=== PATIENT | female | born 1950 | race Caucasian/White ===

== ENCOUNTER 2023-08-23 06:16 | Outpatient (RCR) | payer MEDICARE, SELFPAY | END 2023-08-23 23:59 | disposition home or self-care (01) | LOC: RPT 06:16 | PROVIDERS: ATTENDING PHYSICIAN Family Medicine | DX: I89.0 Lymphedema, not elsewhere classified (principal); Z73.6 Limitation of activities due to disability; M25.552 Pain in left hip; R26.89 Other abnormalities of gait and mobility; Z96.652 Presence of left artificial knee joint | CPT/HCPCS: 97110; 97140; 97163; 97530 ==

== ENCOUNTER → 2023-09-12 12:57 | Outpatient (REF) | payer MEDICARE, SELFPAY | LOC: WDC 12:57 | PROVIDERS: ATTENDING PHYSICIAN Family Medicine | DX: Z12.31 Encounter for screening mammogram for malignant neoplasm of breast (principal) | CPT/HCPCS: 77063; 77067 ==

== ENCOUNTER 2023-09-20 08:49 | Outpatient (RCR) | payer MEDICARE, SELFPAY | END 2023-09-20 23:59 | disposition home or self-care (01) | LOC: RPT 08:49 | PROVIDERS: ATTENDING PHYSICIAN Family Medicine | DX: I89.0 Lymphedema, not elsewhere classified (principal); Z73.6 Limitation of activities due to disability; M25.562 Pain in left knee; M25.561 Pain in right knee | CPT/HCPCS: 97110; 97140; 97530 ==

== ENCOUNTER 2023-10-20 09:02 | Outpatient (RCR) | payer MEDICARE, SELFPAY | END 2023-10-20 23:59 | disposition home or self-care (01) | LOC: RPT 09:02 | PROVIDERS: ATTENDING PHYSICIAN Family Medicine | DX: I89.0 Lymphedema, not elsewhere classified (principal); Z73.6 Limitation of activities due to disability; M25.562 Pain in left knee; M25.561 Pain in right knee | CPT/HCPCS: 97110; 97140; 97530 ==

== ENCOUNTER 2023-10-26 13:52 | Outpatient (RCR) | payer MEDICARE, SELFPAY | END 2023-10-26 23:59 | disposition home or self-care (01) | LOC: RPT 13:52 | PROVIDERS: ATTENDING PHYSICIAN Family Medicine | DX: I89.0 Lymphedema, not elsewhere classified (principal); Z73.6 Limitation of activities due to disability | CPT/HCPCS: 97110; 97140 ==

== ENCOUNTER → 2023-11-23 15:45 | Outpatient (RCR) | payer MEDICARE, SELFPAY | END | disposition home or self-care (01) | LOC: RPT 15:45 | PROVIDERS: ATTENDING PHYSICIAN Family Medicine | DX: I89.0 Lymphedema, not elsewhere classified (principal); Z73.6 Limitation of activities due to disability | CPT/HCPCS: 97163; 97530 ==

== ENCOUNTER 2023-12-25 08:30 | Inpatient (IN) | payer MEDICARE, SELFPAY ==
--- NOTE | 2023-11-23 11:50 | CM ---
Patient is scheduled for an elective R TKR on 12/25/23. Spoke with patient prior to surgery via telephone. Introduced role of Orthopedic Navigator. Patient reports that she lives alone in a one story home. There are no steps to enter. She currently
functions independently. She has a cane, rolling walker, raised toilet seat and grab bars in her shower. She has never had VN services. PCP is Dr. Fidencio Burton.
Discussed orthopedic program and post surgical plans. Reviewed anticipated length of stay and that goal is for her to return home at discharge. Also reviewed outpatient PT. Patient is in agreement with tentative plan and will go directly to
outpatient PT at [facility]. She will have support from her neighbor when she goes home. She was encouraged to arrange for someone to stay with her at least the first night home.
Patient will complete online education.
Plan: Orthopedic Navigator will remain available to assist with the care of patient and will reassess discharge needs after surgery.
[2023-12-06 12:54] VITALS: BMI 39.9
[2023-12-06 13:53] LABS: Hematocrit 40.5 % (37.0-47.0); Hemoglobin 13.5 g/dL (12.0-16.0); Mean Corp Hgb Conc. 33.3 g/dL (33.0-37.0); Mean Corpuscular Hgb 29.7 pg (27.0-31.0); Mean Corpuscular Volume 89.2 fL (81.0-99.0); Mean Platelet Volume 11.2 fL (7.4-10.4); Platelet Count 229 10^3/uL (130-400); Red Blood Cell Count 4.54 10^6/uL (4.20-5.40); Red Cell Dist. Width 14.3 % (11.5-14.5); White Blood Cell Count 8.1 10^3/uL (4.8-10.8)
[2023-12-06 14:23] LABS: ALT (SGPT) 19 U/L (0-35); AST (SGOT) 27 U/L (14-36); Alkaline Phosphatase 95 U/L (38-126); Blood Urea Nitrogen 23 mg/dl (7-17); Calcium 9.7 mg/dl (8.4-10.2); Carbon Dioxide 27 mmol/L (22-30); Chloride 105 mmol/L (98-107); Estimated Creatinine Clearance 75 ml/min; Glucose 88 mg/dl (70-99); Potassium 4.3 mmol/L (3.5-5.1); Sodium 141 mmol/L (135-145); Total Bilirubin 0.6 mg/dl (0.2-1.3); Total Protein 6.8 g/dl (6.3-8.2); eGFR > 60.00
[2023-12-06 14:34] LABS: Glycohemoglobin (HgbA1c) 6.1 % (4.0-5.6)
[2023-12-06 14:49] VITALS: BMI 39.9
[2023-12-25] VITALS (23 sets, daily range): BP systolic 128–168; BP diastolic 52–102; PULSE 57; O2SAT 94; BMI 39.9
[2023-12-25] MEDS: TYLENOL 650 MG PO ×3 (09:38→20:40)
[2023-12-25] MEDS: CELEBREX 200 MG PO (09:39)
[2023-12-25] MEDS: NORMOSOL-R 1000 IV ×2 (09:40→17:16)
--- NOTE | 2023-12-25 20:10 | SUR.PHASEI ---
Bedside Report given to Alicia Humphrey RN.
[2023-12-25] MEDS: ANCEF 5 IV (20:28)
[2023-12-25] MEDS: SENOKOT 17.1999999999999993 MG PO (21:09)
--- NOTE | 2023-12-25 21:45 | PTCARENOTE ---
Addendum entered by Liliana Martinez RN 12/26/23 00:24:
reviewed post op wound care, ambulation, and precautions.
Original Note:
pt arrive to floor at 2130. pt is aaox3, pt reports pain 5/10, weak pp. pt is given prn ultram 50mg w/ +eff. Aquacel to right knee is c/d/i. ice packs applied. pt is oriented to room w/ call logan in reach.
[2023-12-25] MEDS: PEPCID 20 MG PO (22:00)
[2023-12-25] MEDS: ULTRAM 50 MG PO (22:00)
[2023-12-25] MEDS: XARELTO 10 MG PO (22:00)
[2023-12-25] MEDS: TENORMIN 25 MG PO (22:00)
[2023-12-25] MEDS: LIPITOR 10 MG PO (22:01)
[2023-12-25] MEDS: COLACE 100 MG PO (22:01)
[2023-12-25] MEDS: BACTROBAN 2% OINTMENT 1 APPLIC NASAL (22:50)
[2023-12-26] MEDS: TYLENOL PO ×2 (00:25→11:14)
[2023-12-26 03:12] VITALS: BP 154/75
[2023-12-26] MEDS: TYLENOL 650 MG PO ×2 (04:41→10:20)
[2023-12-26] MEDS: FLUSH (NSS) 1 FLUSH IV (04:41)
[2023-12-26] MEDS: ANCEF 5 IV (04:54)
[2023-12-26] MEDS: ULTRAM 50 MG PO (05:05)
[2023-12-26 07:00] VITALS: BP 149/69
--- NOTE | 2023-12-26 09:31 | CM ---
Reviewed chart and held rounds with PT, OT and nursing. Patient admitted as planned for elective R TKR. Met with patient at bedside. Confirmed information previously obtained for assessment. Also discussed discharge plans. The plan is for patient to
return home at discharge. She will have support from her sister when she goes home. Patient will go directly to outpatient PT and will go to [facility]. She has an appointment scheduled for 12/27/23. Reviewed need to schedule appointment
with PA at Dr. Purcell office in two weeks for removal of morgan.
Patient has a rolling walker, cane, grab bars in shower, and commode. She plans to have commode by bedside initially.
She will use [facility] pharmacy in [place] for discharge prescriptions.
[2023-12-26 09:56] VITALS: BP 149/69
[2023-12-26] MEDS: BACTROBAN 2% OINTMENT 1 APPLIC NASAL (10:19)
[2023-12-26] MEDS: SENOKOT 17.1999999999999993 MG PO (10:19)
[2023-12-26] MEDS: COLACE 100 MG PO (10:20)
--- NOTE | 2023-12-26 10:39 | W.PN.ORTHO ---
Today's Communication / Plan
-
d/c
Assessment
.
Distal Motor Intact: Yes
Dressing:
Clean, dry and intact.
Assessment:
PAF-stable on tele-Xarelto
Morbid obesity BMI 39.9--Cefadroxil ppx
Plan
.
Surgery / Date: R TKA 12/25/23 CBB
DVT Prophylaxis: Other (Xarelto)
Activity:
Out of bed.
PT/OT
Discharge Plan: Home w/ Outpatient PT
Subjective
.
.:
Patient resting comfortably.
Vital Signs and Labs
.
Vital Signs and Labs:
Lab Results
12/06/23 12:50
12/06/23 12:50
Temp Pulse Resp BP Pulse Ox
97.7 F 57 18 149/69 97
12/26/23 07:00 12/26/23 07:00 12/26/23 07:00 12/26/23 07:00 12/26/23 07:00
Non-invasive Hgb result: 11.3
Physical Exam
-
HEENT: No pallor, cyanosis, or jaundice. Throat clear.
NECK: Supple. No JVD.
RESPIRATORY: Lungs clear to auscultation.
CVS: S1, S2 normal. RRR.� No murmur, rub or gallop.
ABDOMEN: Soft, non-tender. No distension. BS+/normal.
EXTREMITIES: strength equal, no calf pain with palpation
HOME CARE PHYSICAL THERAPIST: AOx3. No focal deficits. toolmaker helper grossly intact
--- NOTE | 2023-12-26 10:49 | W.DS.TRANS ---
DC Summary - Welding Manager
-
Discharge Instructions:
Sleep Apnea Risk Intermediate
Discharge Diagnosis/Procedures R TKA 12/25/23 CBB
Diet As tolerated
Activity With Walker
Driving Restrictions No driving
Bathing Restrictions OK to Shower
Other Services PT
Instructions:
Stand-Alone Forms: Total Hip/Knee Replacement D/C
Changes to Home Medications: Yes
Discharge Medications:
DC Medications w/original date entered in [facility]
atenolol 25 mg tablet 25 mg PO HS 03/03/09
simvastatin 20 mg tablet 20 mg PO HS 03/03/09
ascorbic acid (vitamin C) 500 mg chewable tablet (Vitamin C) 500 mg PO DAILY 11/30/23
cholecalciferol (vitamin D3) 25 mcg (1,000 unit) chewable tablet (Vitamin D3) 25 mcg PO DAILY 11/30/23
coQ10 (ubiquinol) 200 mg PO DAILY 11/30/23
famotidine 20 mg tablet 20 mg PO HS 11/30/23
fiber 2 tab PO DAILY 11/30/23
mecobalamin (vitamin B12) 1,000 mcg chewable tablet (B12 Active) 1,000 mcg PO DAILY 11/30/23
multivitamin 1 tab PO DAILY 11/30/23
mupirocin 2 % topical ointment 1 applic topical BID infection prevention #1 tube 12/06/23
Saccharomyces boulardii 250 mg capsule (Florastor) 250 mg PO BID #1 cap 12/26/23
acetaminophen 325 mg capsule (Tylenol) 650 mg (2 x 325 mg) PO QID #2 caps 12/26/23
cefadroxil 500 mg capsule 500 mg PO BID infection prevention #14 caps 12/26/23
docusate sodium 100 mg capsule (Colace) 100 mg PO BID stool softner #1 cap 12/26/23
magnesium hydroxide 400 mg/5 mL oral suspension (Milk of Magnesia) 30 ml PO HS PRN Constipation #1 mL 12/26/23
rivaroxaban 10 mg tablet (Xarelto) 10 mg PO QPM afibb/blood clot prevent #4 tabs 12/26/23
rivaroxaban 20 mg tablet (Xarelto) 20 mg PO QPM afibb/blood clot prevent #1 tab 12/26/23
sennosides 8.6 mg tablet (Senokot) 17.2 mg (2 x 8.6 mg) PO BID laxative #2 tabs 12/26/23
tramadol 50 mg tablet 50 mg PO Q6H PRN 1 tab moderate pain, 2 if severe #30 tabs 12/26/23
Home Medication Changes
cefadroxil 500 mg capsule 500 mg PO BID infection prevention #14 caps 12/26/23�
rivaroxaban 10 mg tablet (Xarelto) 10 mg PO QPM afibb/blood clot prevent #4 tabs 12/26/23�
rivaroxaban 20 mg tablet (Xarelto) 20 mg PO QPM afibb/blood clot prevent #1 tab 12/30/23 start
tramadol 50 mg tablet 50 mg PO Q6H PRN 1 tab moderate pain, 2 if severe #30 tabs 12/26/23�
Pending Results: No
[2023-12-26 11:14] VITALS: BP 155/69
[2023-12-26 11:53] VITALS: BP 155/69; PULSE 64; O2SAT 96
== END 2023-12-26 12:35 | disposition home or self-care (01) | DRG 470 ==
LOC: 2 SOUTH 08:30
PROVIDERS: ADMITTING PHYSICIAN Specialist; FAMILY PHYSICIAN Family Medicine
PROC: 0SRC0J9 Replacement of Right Knee Joint with Synthetic Substitute, Cemented, Open Approach (ICD-10-PCS; 2023-12-25)
DX: M17.11 Unilateral primary osteoarthritis, right knee (principal); I10 Essential (primary) hypertension; E66.01 Morbid (severe) obesity due to excess calories; Z68.39 Body mass index [BMI] 39.0-39.9, adult; I65.21 Occlusion and stenosis of right carotid artery; I48.0 Paroxysmal atrial fibrillation; G47.33 Obstructive sleep apnea (adult) (pediatric); E78.2 Mixed hyperlipidemia; K21.9 Gastro-esophageal reflux disease without esophagitis; Z96.652 Presence of left artificial knee joint; Z79.01 Long term (current) use of anticoagulants; Z79.899 Other long term (current) drug therapy; Z88.0 Allergy status to penicillin; Z88.1 Allergy status to other antibiotic agents; Z88.5 Allergy status to narcotic agent
CPT/HCPCS: 36415; 73560; 80053; 83036; 85027; 87070; 97110; 97116; 97162; 97166; 97530; 97535; C1713; C1776

== ENCOUNTER → 2024-05-02 13:44 | Outpatient (REF) | payer MEDICARE, SELFPAY | LOC: HWEVLT 13:44 | PROVIDERS: ATTENDING PHYSICIAN Radiology Vascular & Interventional Radiology | DX: I83.893 Varicose veins of bilateral lower extremities with other complications (principal) | CPT/HCPCS: 93970 ==

== ENCOUNTER → 2024-07-09 08:01 | Outpatient (REF) | payer MEDICARE, SELFPAY | LOC: HWRAD 08:01 | PROVIDERS: ATTENDING PHYSICIAN Physical Medicine & Rehabilitation; FAMILY PHYSICIAN Family Medicine | DX: M54.16 Radiculopathy, lumbar region (principal) | CPT/HCPCS: 72131 ==

== ENCOUNTER → 2024-09-16 10:37 | Outpatient (REF) | payer MEDICARE, SELFPAY | LOC: HWWDC 10:37 | PROVIDERS: ATTENDING PHYSICIAN Family Medicine | DX: Z12.31 Encounter for screening mammogram for malignant neoplasm of breast (principal) | CPT/HCPCS: 77063; 77067 ==

== ENCOUNTER → 2024-10-29 10:25 | Outpatient (REF) | payer MEDICARE, SELFPAY | LOC: HWRAD 10:25 | PROVIDERS: ATTENDING PHYSICIAN Family Medicine | DX: R06.02 Shortness of breath (principal); R07.9 Chest pain, unspecified | CPT/HCPCS: 71046 ==

== ENCOUNTER 2024-12-30 09:19 | Day surgery (SDC) | payer MEDICARE, SELFPAY ==
--- NOTE | 2024-12-30 18:49 | ITS.CL.CARDI ---
Benefits Representative - Cardioversion
Cardioversion
Procedure Report:
Date of Procedure: 12/30/24
Procedure: Cardioversion
Indication: Symptomatic atrial fibrillation
Performing Physician: Chantel Barton DO [facility]
Anticoagulation: Xarelto
Technique: The patient was brought to the holding area. Signed informed consent was obtained. A time out was called and performed. The patient was anesthetized by the anesthesia service. Anticoagulation status was reviewed and appropriate. R2 pads
were placed anteriorly and posteriorly. A 200 J synchronized biphasic shock restored normal sinus rhythm without significant bradycardia. There were no complications.
Conclusion: Uncomplicated cardioversion from atrial fibrillation to sinus rhythm.
Recommendation: Routine post cardioversion care. Continue terminal worker anticoagulation.
== END 2024-12-30 10:58 | disposition home or self-care (01) ==
LOC: CATH 09:19
PROVIDERS: ATTENDING PHYSICIAN Internal Medicine Cardiovascular Disease; FAMILY PHYSICIAN Family Medicine; OTHER PHYSICIAN Internal Medicine Cardiovascular Disease
DX: I48.0 Paroxysmal atrial fibrillation (principal); R00.2 Palpitations; R06.02 Shortness of breath; I10 Essential (primary) hypertension; E78.2 Mixed hyperlipidemia; I65.21 Occlusion and stenosis of right carotid artery; G47.33 Obstructive sleep apnea (adult) (pediatric); E66.9 Obesity, unspecified; Z68.38 Body mass index [BMI] 38.0-38.9, adult; Z79.01 Long term (current) use of anticoagulants
CPT/HCPCS: 92960; 93005

== ENCOUNTER → 2025-02-17 08:01 | Outpatient (REF) | payer MEDICARE, SELFPAY | LOC: RCS 08:01 | PROVIDERS: ATTENDING PHYSICIAN Internal Medicine Cardiovascular Disease; FAMILY PHYSICIAN Family Medicine | DX: I48.0 Paroxysmal atrial fibrillation (principal) | CPT/HCPCS: 93306 ==

== ENCOUNTER → 2025-03-28 09:04 | Outpatient (REF) | payer MEDICARE, SELFPAY ==
[2025-03-28 09:53] LABS: Hematocrit 43.6 % (37.0-47.0); Hemoglobin 14.2 g/dL (12.0-16.0); Mean Corp Hgb Conc. 32.6 g/dL (33.0-37.0); Mean Corpuscular Volume 91.0 fL (81.0-99.0); Nucleated Red Blood Cells % 0 %; Platelet Count 200 10^3/uL (130-400); Red Cell Dist. Width 14.9 % (11.5-14.5)
[2025-03-28 10:00] LABS: ALT (SGPT) 20 U/L (0-35); AST (SGOT) 20 U/L (14-36); Albumin 4.4 g/dl (3.5-5.0); Alkaline Phosphatase 87 U/L (38-126); Blood Urea Nitrogen 20 mg/dl (7-17); Calcium 9.3 mg/dl (8.4-10.2); Carbon Dioxide 26 mmol/L (22-30); Chloride 108 mmol/L (98-107); Glucose 94 mg/dl (70-99); Magnesium 2.2 mg/dl (1.6-2.3); Potassium 4.6 mmol/L (3.5-5.1); Sodium 141 mmol/L (135-145); Total Protein 7.0 g/dl (6.3-8.2); eGFR > 60.00
[2025-03-28 10:06] LABS: INR 1.83; PT 21.3 Sec (11.4-14.6)
== END ==
LOC: SDSPAT 09:04
PROVIDERS: ATTENDING PHYSICIAN Internal Medicine Cardiovascular Disease; FAMILY PHYSICIAN Family Medicine; OTHER PHYSICIAN Internal Medicine Cardiovascular Disease
DX: I48.91 Unspecified atrial fibrillation (principal)
CPT/HCPCS: 36415; 75572; 80053; 83735; 85025; 85610; 86850; 86900; 86901; 93005; Q9967

== ENCOUNTER 2025-04-18 06:01 | Day surgery (SDC) | payer MEDICARE, SELFPAY ==
[2025-03-28 09:09] VITALS: BMI 39.2
--- NOTE | 2025-03-28 11:49 | HPS.HSE ---
Family Physician
-
Family Physician: Fidencio Burton
Chief Complaint
-
Persistent atrial fibrillation.
History of Present Illness
The patient is a 74 year old female presenting today for persistent atrial fibrillation. She does report symptoms of fatigue, intermittent palpitations, exertional dyspnea, and worsening bilateral lower extremity edema all likely
associated with this diagnosis. She previously underwent a cardioversion in December of this year; unfortunately, her arrhythmia returned soon after this procedure. She is on current pharmacological therapy with Atenolol. She does report compliance with
Eliquis for oral anticoagulation due to a [id number] of 5. She notes that her symptoms associated with her arrhythmia greatly interfere with her activities of daily living and overall impact her quality of life. She is interested in pursuing
pulmonary vein isolation for further arrhythmia management. She denies any complaints today such as chest pain, shortness of breath at rest, nausea, vomiting, diarrhea, lightheadedness, dizziness, cough, sore throat, or fever.
Medical History
Past Medical History
Past Medical History: Reports Other
Additional Past Medical History:
1. Persistent atrial fibrillation, status post cardioversion 12/2024; pharmacological therapy with Atenolol and oral anticoagulation with Xarelto.
2. Hyperlipidemia.
3. Hypertension.
4. Right internal carotid artery stenosis, 54% by CTA 12/2021.
5. Right greater saphenous venous insufficiency.
6. Mild mitral regurgitation.
7. Chronic postnasal drip.
8. Obstructive sleep apnea, intolerant to device.
9. Colon polyps.
10. Lumbar degenerative disc disease with stenosis.
11. Sciatica.
12. Osteoarthritis, status post right total knee arthroplasty, 12/2023, and left total knee arthroplasty 10/2021.
13. 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
14. Basal cell carcinoma, status post excision.
15. Obesity, BMI 39.2.
Past Surgical History: Reports Other
Additional Past Surgical History:
1. Cardioversion.
2. Right total knee arthroplasty.
3. Left total knee arthroplasty.
4. Revision of left total knee arthroplasty.
5. Bilateral breast reduction.
6. Sinus surgery.
7. Right bunionectomy.
8. Left bunionectomy.
9. Colonoscopy.
Social History
Tobacco: Non-smoker
Alcohol: None
Living: Alone (in a 1 story home. )
Family History
Family History: Not pertinent
Allergies / Home Medications
Allergy/Medication List:
Home medications:
1. Ascorbic acid 1 gram p.o. daily.
2. Atenolol 50 mg p.o. twice a day.
3. Cholecalciferol 50 mcg p.o. daily.
4. CoQ10 200 mg p.o. daily.
5. Cyanocobalamin 1000 mcg p.o. daily.
6. Famotidine 20 mg p.o. daily as needed.
7. Multivitamin 1 tablet p.o. daily.
8. Psyllium 5 grams p.o. daily.
9. Xarelto 20 mg p.o. every evening.
10. Rosuvastatin 20 mg p.o. at bedtime.
Allergies: Codeine. Quinolones. Penicillin.
Review of Systems
-
A 12 point ROS was completed and negative except as noted: Yes
Physical Exam
Vital Signs
Blood pressure 143/72. Heart rate 88. Respirations 18. Pulse ox 98% on room air.
Height 5 feet, 2 inches. Weight 97.2 kg. BMI 39.2.
Physical Exam
General: Well Developed, Well Nourished and No Apparent Distress
HEENT: NormoCephalic, Moist mucous membranes, Atraumatic and PERRLA
Respiratory: Clear
Cardiac: Irregular Rhythm
GI: Soft, Non Tender, Non Distended and Other (Obese. )
Musculoskeletal: Normal Gait & Station and Other (Non-pitting edema of bilateral lower extremities. )
Skin: Warm and Dry
Neuro: AO x 3 and Nonfocal/grossly intact
Psych: Anxious
Laboratory Results
-
DIAGNOSTIC STUDIES as of 03/28/2025: White blood cell count 7.7. Hemoglobin 14.2. Platelet count 200,000. PT 21.3. INR 1.83. Sodium 141. Potassium 4.6. BUN 20. Creatinine 0.8. Glucose 94. Calcium 9.3. Magnesium 2.2. AST 20. ALT 20. Albumin 4.4. Type
and screen O positive.
EKG 03/28/2025: Atrial fibrillation with rapid ventricular response. Non-specific T wave abnormality.
Chest CT 03/28/2025: Normal, conventional pulmonary venous anatomy. No left atrial filling defect/thrombus is identified.
Echocardiogram 02/17/2025: Normal left ventricular size with mild left ventricular hypertrophy and low normal systolic LV function. Ejection fraction is 55%. Mitral annular calcification, thickened mitral leaflets, mild mitral regurgitation and
normal left atrium. Normal aortic valve in the setting of limited image quality. Normal right heart with normal pulmonary artery systolic pressure. Rapid ventricular response to atrial fibrillation.
Impression/Plan
-
IMPRESSION/PLAN:
1. Persistent atrial fibrillation: The patient is in need of pulmonary vein isolation with Dr. Maxx Wong on 04/18/2025. The benefits and risks of the procedure have been explained to the patient. The patient understands these risks and wishes to
proceed. She will not be required to undergo a pre-procedural transesophageal echocardiogram as she has been compliant with her home oral anticoagulation. She is aware to continue her Xarelto uninterrupted prior to her procedure. She will take no
medications the morning of her ablation.
[2025-04-18] VITALS (12 sets, daily range): BP systolic 100–155; BP diastolic 62–97; BMI 39.0
--- NOTE | 2025-04-18 08:10 | ITS.CL.ABL ---
Keg Varnisher - Ablation
Ablation
Procedure Report:
Primary Receiving Clerk: Dr Munir Perez
Procedure Date: 04/18/2025
Patient History:
Patient is a pleasant 74-year-old female with a past medical history significant for hypertension, dyslipidemia, obesity, carotid artery stenosis, sleep apnea, fatigue, symptomatic persistent atrial fibrillation.
See H&P for complete details.
Indication:
Symptomatic persistent atrial fibrillation
Arrhythmia Specific History:
Prior Medical Therapies for Rate and Rhythm Control:
X Beta-gloria
[ ] Calcium channel-gloria
[ ] Amiodarone
[ ] Dronederone
[ ] Sotalol
[ ] Flecainide
[ ] Dofetilide
[ ] Options limited by bradycardia
[ ] Options limited by comorbid renal disease
Prior Procedural Therapies for AF/AFL:
X Cardioversion
[ ] Pulmonary Vein Isolation
[ ] Posterior Wall Isolation
[ ] Additional lines (Specify)
[ ] Surgical Baez-MAZE or PVI (Specify)
Procedure Performed:
X AF ablation procedure (97104) -- includes LA/CS pacing, trans-septal, 3D mapping, + ICE
[ ] +IV drug (70505)
X +Other Arrhythmia (79435) - typical CTI flutter ablation
X +Other AF Line/ablation (04476) x2 - floor line, roof line, posterior wall isolation
Risks and expected recovery has been explained in detail. Alternative options have been explored, and in a shared-decision making fashion we have decided that this was the most appropriate procedure.
Method
NPO status confirmed. Grounding pad applied. Defibrillator pads applied. Continuous surface ECG, pulse oximetry, and blood pressure were monitored. Procedure was performed under general anesthesia, with anesthesia services.
Both groins were clipped, prepped with Chloraprep, and draped in sterile fashion. Time out was called. Local anesthesia administered with bupivacaine. The right femoral vein was accessed for catheter placement, using ultrasound guidance (images
saved to record), micro-puncture needle/wire, and modified seldinger technique. 3 sheaths were placed. The following catheters were used:
X TactiFlex SE (D/F Curve) ablation catheter
X Viewflex 9Fr ICE catheter
X Inquiry decapolar 6Fr diagnostic catheter
[ ] CRD Hex 6Fr
X FlexCath Contour 10 Fr with PulseSelect PFA Catheter
X Advisor HD Grid Mapping Catheter, SE
[ ] AcusStatim Health AcuNav 8 Fr ICE catheter
[ ]Other: [ ]
Intracardiac ultrasound (ICE) was carefully advanced into the right atrium to guide sheath placement over a J-wire, catheter placement, guide trans-septal puncture, identify potential complications, identify anatomic structures and ensure proper
contact between ablation catheter and tissue. A trace basal LV pericardial effusion was noted at the initiation of procedure which remained unchanged throughout procedure and at case completion.
Heparin was given prior to trans-septal puncture. Heparin was given to achieve and maintain a target ACT of 300-400 seconds throughout the procedure.
Trans-septal access was performed under ICE guidance. The trans-septal puncture was performed with a SafeSept wire through a Brockenbrough needle assembly through the steerable sheath. The wire was visualized as it entered the LSPV and system
advanced under ICE guidance and fluoroscopy into the LA. The Brockenbrough needle assembly, SafeSept wire and sheath dilator were removed under negative pressure. LA pressure was measured and recorded.
ICE and 3D mapping was performed to identify relevant cardiac structures. A careful 3D map was created to assess for regions of low-voltage and abnormal electrogram signals using HD grid mapping catheter and PulseSelect catheter. Additional mapping
was performed as outlined below.
Prior to ablation, glycopyrrolate was provided. PulseSelect catheter was advanced over J-wire to the ostium of each vein. Pulmonary vein isolation was performed with ostial and antral lesions in a circumferential manner. Contact was visualized via
EAM, ICE, fluoroscopy, and EGM signals.
After accomplishing pulmonary venous isolation, mapping identified additional areas likely to be extra PV contributors to atrial fibrillation. These areas demonstrated patchy low voltage as well as complex fractionated electrograms. These areas can
be sites for the formation of rotors which can drive and maintain atrial fibrillation. These areas are known to be significant contributors to initiation and perpetuation of atrial fibrillation.
Additional energy applications/additional ablation sets targeted extra PV contributors to atrial fibrillation.
Targets for additional PFA ablation included: LA posterior wall targeted with pulsed electric field energy isolating the posterior wall of the left atrium. Posterior wall isolation was performed by anchoring the J-wire within the pulmonary vein and
placing the PulseSelect catheter in contact posterior wall as visualized by aforementioned methods.
After ablation of the posterior wall, targets remained including:
- Inferior LA floor
- Anterior LA roof
- The ridge of tissue between the left atrial appendage and the left sided pulmonary veins (Ligament of Sammy)
These areas were ablated using pulsed electric field energy eliminating the extra PV contributors to atrial fibrillation.
Following completion of ablation lesions, sinus rhythm was restored with a 200J synchronized DCCV and a post-ablation voltage/activation map was performed in sinus rhythm. Entrance and exit block were confirmed for each vein and the posterior wall.
During electrophysiologic testing, patient was noted to enter into atrial flutter. This had a tachycardia cycle length of 270 ms with concentric decapolar activation through the coronary sinus. Catheter and sheath were removed from the left
atrium. HD grid was reintroduced into the right atrium and electroanatomic mapping was used. Through EAM and pacing, CTI typical right atrial flutter was confirmed with PPI minus TCL of 0 on the CTI. Next, utilizing electroanatomic
three-dimensional navigation, a 3.5 mm tip TactiFlex SE irrigated ablation catheter was advanced to the right atrium with the assistance of the steerable long sheath. An electroanatomic three-dimensional map of the right atrium was constructed,
with careful attention to anatomic landmarks, including the coronary sinus, IVC-RA and SVC-RA junction, tricuspid valve annulus, and region of the His bundle electrogram.
An ablation line was created from the tricuspid annulus to the IVC in the 6:00 position (SYRIAC clock). Power was titrated to 35 [place]. The patient�s atrial flutter terminated during ablation, with resumption of NSR. The line was completed during
CS pacing, and bidirectional block was achieved. The ablation line was mapped to ensure widely spaced double potentials, and after a minute waiting period, bidirectional block persisted. During repeat electrophysiology testing, patient was induced
to atrial flutter once more. Tachycardia cycle length was now 250 ms. Ablation catheter was placed back in the right atrium and initial entrainment demonstrated a PPI minus TCL of less than 30 mL from the right atrium however using the ablation
catheter at the proximal portion of the coronary sinus, the right atrium was noted to PPI minus TCL greater than 100. Distal CS pacing placed this in the left atrium however with entrainment maneuvers, the TCL had changed. With each attempt,
tachycardia had changed and therefore decision was made for 200 J synchronized DCCV. Patient had advent of sinus rhythm with no further arrhythmias induced.
CPost-ablation intracardiac echo evaluation was consistent with pre-ablation with no changes and no change to pericardial effusion and there is no left atrial thrombus or left ventricle thrombus seen. Hemostasis was obtained with figure of 8 stitch
for each groin and with manual pressure. Protamine was used for reversal.
Estimated Blood Loss
10 mL
Complications
None
Fluoroscopy: 7.8 minutes; 31.49 mGy; DAP 4.27
LA Pressure: Pre 18 mmHg, post 17 mmHg
Baseline Intervals:
Rhythm: AF
QRS: 78 ms
QT: 344 ms
QTc: 444 ms
Post-Procedure Intervals:
GA: 170 ms
QRS: 85 ms
QT: 489 ms
QTc: 466 ms
A-A: 1100 ms
R-R: 1100 ms
AVWB: 370 ms
AVNERP: 600/350 ms
Recommendations
- Bedrest with straight-leg precautions as ordered
- Anticipate same day discharge if patient meeting clinical metrics
- Resume home medications as indicated
- Ok to resume anticoagulation tonight if patient and groin sites stable
- Plan for follow-up in office as scheduled
Maxx Wong, DO, FACC, RS
Clinical Card[facility]
cc: Dr Munir Perez; Dr Fidencio Burton
[2025-04-18 08:47] LABS: ACT-LR - POC 327 Seconds (116-155)
[2025-04-18 09:22] LABS: ACT-LR - POC 361 Seconds (116-155)
[2025-04-18 09:40] LABS: ACT-LR - POC 360 Seconds (116-155)
[2025-04-18 10:00] LABS: ACT-LR - POC 382 Seconds (116-155)
[2025-04-18 10:08] LABS: ACT-LR - POC 263 Seconds (116-155)
[2025-04-18 10:19] LABS: ACT-LR - POC > 397 Seconds (116-155)
[2025-04-18 10:25] LABS: ACT-LR - POC 300 Seconds (116-155)
[2025-04-18 10:58] LABS: ACT-LR - POC 250 Seconds (116-155)
[2025-04-18 11:24] LABS: ACT-LR - POC 152 Seconds (116-155)
--- NOTE | 2025-04-18 15:18 | W.PN.UPDATE ---
Update Note
Progress Note Update
Pt seen post PFA/Flutter ablation. Right groin site without ht/bleeding, non tender. Post EKG NSR 63, NSSTT abn. Resume xarelto tonight, continue other meds as before. Followup with Dr. Perez as scheduled. Home today if groin sites/tele remain
stable.
== END 2025-04-18 16:30 | disposition home or self-care (01) ==
LOC: CATH 06:01
PROVIDERS: ATTENDING PHYSICIAN Internal Medicine Cardiovascular Disease; FAMILY PHYSICIAN Family Medicine; OTHER PHYSICIAN Internal Medicine Cardiovascular Disease
DX: I48.19 Other persistent atrial fibrillation (principal); I48.92 Unspecified atrial flutter; I10 Essential (primary) hypertension; E78.5 Hyperlipidemia, unspecified; I65.21 Occlusion and stenosis of right carotid artery; I87.2 Venous insufficiency (chronic) (peripheral); I34.0 Nonrheumatic mitral (valve) insufficiency; G47.33 Obstructive sleep apnea (adult) (pediatric); E66.9 Obesity, unspecified; Z68.39 Body mass index [BMI] 39.0-39.9, adult; Z79.01 Long term (current) use of anticoagulants; Z79.899 Other long term (current) drug therapy
CPT/HCPCS: C1733; C1766; C1732; 85347; 86900; 86901; 93005; 93655; 93656; 93657; C1730; C1769; C1894

== ENCOUNTER 2025-06-06 09:36 | Day surgery (SDC) | payer MEDICARE, SELFPAY ==
--- NOTE | 2025-06-06 10:22 | ITS.CL.CARDI ---
C Engineer - Cardioversion
Cardioversion
Procedure Report:
Date of Procedure: 06/06/25
Procedure: Cardioversion
Indication: Symptomatic atrial fibrillation
Performing Physician: Arnold Wolfe MD
Technique: The patient was brought to the holding area. Signed informed consent was obtained. A time out was called and performed. The patient was anesthetized by the anesthesia service. Anticoagulation status was reviewed and appropriate. R2 pads
were placed anteriorly and posteriorly. A 200 J synchronized biphasic shock restored normal sinus rhythm without significant bradycardia. There were no complications.
Conclusion: Uncomplicated cardioversion from atrial fibrillation to sinus rhythm.
Recommendation: Routine post cardioversion care. Continue parts counterman anticoagulation.
== END 2025-06-06 10:58 | disposition home or self-care (01) ==
LOC: CATH 09:36
PROVIDERS: ATTENDING PHYSICIAN Internal Medicine Cardiovascular Disease; FAMILY PHYSICIAN Family Medicine; OTHER PHYSICIAN Internal Medicine Cardiovascular Disease
DX: I48.0 Paroxysmal atrial fibrillation (principal); Z79.01 Long term (current) use of anticoagulants; I10 Essential (primary) hypertension; R07.9 Chest pain, unspecified; Z79.899 Other long term (current) drug therapy; E66.9 Obesity, unspecified
CPT/HCPCS: 92960; 93005